=== PATIENT | male | born 1990 | race Two or more races ===

== ENCOUNTER 2017-07-14 15:43 | Emergency (ER) | payer OTHER ==
[2017-07-14] MEDS ORDERED: NORMAL SALINE 1000 ML 1,000 ML IV ONE (15:57)
--- NOTE | 2017-07-14 16:00 | ER Document Report ---
ED General - General Chief Complaint: Heat Exposure Stated Complaint: HEAT EXPOSURE Time Seen by Provider: 07/14/17 15:57 Mode of Arrival: Medic Information source: Patient Notes: 27-year-old male presents with complaints of body cramping in his hands locking up while he was outside working in 85 weather. Patient was given IV fluids by EMS and notes symptoms are already improving. Patient had similar issue in the past TRAVEL OUTSIDE OF THE [place] IN LAST 30 DAYS: No - HPI Onset: Just prior to arrival Onset/Duration: Sudden Quality of pain: Cramping Severity: Moderate Pain Level: 3 Associated symptoms: Body/muscle aches Exacerbated by: Other - Working outdoors Relieved by: Other - IV fluids Similar symptoms previously: Yes Recently seen / treated by doctor: No - Related Data Allergies/Adverse Reactions: peanut butter Allergy (Uncoded 07/14/17 15:45) Past Medical History - Social History Smoking Status: Never Smoker Cigarette use (# per day): No Chew tobacco use (# tins/day): No Smoking Education Provided: No Family History: Reviewed & Not Pertinent Review of Systems - Review of Systems Notes: REVIEW OF SYSTEMS: CONSTITUTIONAL : Denies fever, chills, or sweats. Denies recent illness. EENT: Denies eye, ear, throat, or mouth pain or symptoms. Denies nasal or sinus congestion or discharge. Denies throat, tongue, or mouth swelling or difficulty swallowing. CARDIOVASCULAR: Denies chest pain. Denies palpitations or racing or irregular heart beat. Denies ankle edema. RESPIRATORY: Denies cough, cold, or chest congestion. Denies shortness of breath, difficulty breathing, or wheezing. GASTROINTESTINAL: Denies abdominal pain or distention. Denies nausea, vomiting , or diarrhea. Denies blood in vomitus, stools, or per rectum. Denies black, tarry stools. Denies constipation. GENITOURINARY: Denies difficulty urinating, painful urination, burning, frequency, blood in urine, or discharge. MUSCULOSKELETAL: Admits to body aches hands cramping muscles cramping SKIN: Denies rash, lesions or sores. HEMATOLOGIC : Denies easy bruising or bleeding. LYMPHATIC: Denies swollen, enlarged glands. NEUROLOGICAL: Denies confusion or altered mental status. Denies passing out or loss of consciousness. Denies dizziness or lightheadedness. Denies headache. Denies weakness or paralysis or loss of use of either side. Denies problems with gait or speech. Denies sensory loss, numbness, or tingling. Denies seizures. PSYCHIATRIC: Denies anxiety or stress. Denies depression, suicidal ideation, or homicidal ideation. ALL OTHER SYSTEMS REVIEWED AND NEGATIVE. Dictation was performed using [employer] voice recognition software PHYSICAL EXAMINATION: GENERAL: Well-appearing, well-nourished and in no acute distress. HEAD: Atraumatic, normocephalic. EYES: Pupils equal round and reactive to light, extraocular movements intact, sclera anicteric, conjunctiva are normal. ENT: Nares patent, oropharynx clear without exudates. Moist mucous membranes. NECK: Normal range of motion, supple without lymphadenopathy LUNGS: Breath sounds clear to auscultation bilaterally and equal. No wheezes rales or rhonchi. HEART: Regular rate and rhythm without murmurs ABDOMEN: Soft, nontender, nondistended abdomen. No guarding, no rebound. No masses appreciated. Musculoskeletal: Normal range of motion, no pitting or edema. No cyanosis. NEUROLOGICAL: Cranial nerves grossly intact. Normal speech, normal gait. Normal sensory, motor exams PSYCH: Normal mood, normal affect. SKIN: Warm to touch dry Physical Exam - Vital signs Vitals: Temp Pulse Resp BP Pulse Ox 97.6 F 104 H 16 129/80 H 100 07/14/17 15:49 07/14/17 15:49 07/14/17 15:49 07/14/17 15:49 07/14/17 15:49 Course - Re-evaluation Re-evalutation: 07/14/17 16:12 Patient will be given IV fluids rhabdo workup pending 07/14/17 17:11 Patient's creatinine is noted to be 2.54 CK was 800s, 19 which would be consistent with distress 07/14/17 19:25 Patient's creatinine has improved to 1.79, he is insisting that we discharge at this time I will discharge him at his request, patient has been instructed not to work any further for the next couple days Patient encouraged to hydrate well - Vital Signs Vital signs: Temp Pulse Resp BP Pulse Ox 98.3 F 95 18 125/84 100 07/14/17 19:17 07/14/17 19:17 07/14/17 19:17 07/14/17 19:17 07/14/17 19:17 - Laboratory Result Diagrams: 07/14/17 18:29 07/14/17 18:10 Laboratory results interpreted by me: 07/14/17 07/14/17 07/14/17 16:11 16:11 16:15 WBC 19.2 H RBC 5.81 H RDW 15.4 H Seg Neutrophils % 85.7 H Lymphocytes % 7.7 L Absolute Neutrophils 16.4 H Chloride Carbon Dioxide Creatinine 2.54 H Est GFR ( Amer) 36 L Est GFR (Non-Af Amer) 30 L Glucose 63 L Calcium 10.5 H Creatine Kinase 843 H Total Protein 8.4 H Urine Blood MODERATE H 07/14/17 07/14/17 18:10 18:29 WBC 18.9 H RBC RDW 15.1 H Seg Neutrophils % 85.4 H Lymphocytes % 8.1 L Absolute Neutrophils 16.1 H Chloride 109 H Carbon Dioxide 21 L Creatinine 1.79 H Est GFR ( Amer) 55 L Est GFR (Non-Af Amer) 45 L Glucose 64 L Calcium Creatine Kinase 971 H Total Protein Urine Blood Discharge - Discharge Clinical Impression: Acute renal failure Qualifiers: Acute renal failure type: unspecified Qualified Code(s): N17.9 - Acute kidney failure, unspecified Heat stroke Qualifiers: Encounter type: initial encounter Qualified Code(s): T67.0XXA - Heatstroke and sunstroke, initial encounter Condition: Stable Disposition: HOME, SELF-CARE Additional Instructions: You must drink lots of fluids and stay out of work for the next 2-3 days Return immediately if there are any other concerns
[2017-07-14 16:39] LABS: ABSOLUTE LYMPHOCYTES (AUTO) 1.5 10^3/uL (0.5-4.7); ABSOLUTE MONOCYTES (AUTO) 1.2 10^3/uL (0.1-1.4); ABSOLUTE NEUT (AUTO) 16.4 10^3/uL (1.7-8.2); BASOPHILS % (AUTO) 0.1 % (0-2); EOSINOPHILS % (AUTO) 0.1 % (0-6); HEMATOCRIT 49.7 % (37.9-51.0); HEMOGLOBIN 16.9 g/dL (13.5-17.0); LYMPHOCYTES % (AUTO) 7.7 % (13-45); MEAN CORPUSCULAR HEMOGLOBIN 29.1 pg (27.0-33.4); MEAN CORPUSCULAR VOLUME 86 fl (80-97); MONOCYTES % (AUTO) 6.4 % (3-13); PLATELET COUNT 277 10^3/uL (150-450); RED BLOOD COUNT 5.81 10^6/uL (4.35-5.55); RED CELL DISTRIBUTION WIDTH 15.4 % (11.5-14.0); SEGMENTED NEUTROPHILS % (AUTO) 85.7 % (42-78); TOTAL CELLS COUNTED % (AUTO) 100 %; WHITE BLOOD COUNT 19.2 10^3/uL (4.0-10.5)
[2017-07-14 17:03] LABS: ALANINE AMINOTRANSFERASE 36 U/L (21-72); ALKALINE PHOSPHATASE 52 U/L (38-126); ANION GAP 18 (5-19); ASPARTATE AMINO TRANSFERASE 42 U/L (17-59); BILIRUBIN,DIRECT 0.4 mg/dL (0.0-0.4); BILIRUBIN,TOTAL 0.5 mg/dL (0.2-1.3); BLOOD UREA NITROGEN 17 mg/dL (7-20); CALCIUM 10.5 mg/dL (8.4-10.2); CARBON DIOXIDE 22 mmol/L (22-30); CHLORIDE 101 mmol/L (98-107); CREATINE KINASE 843 U/L (55-170); GLUCOSE 63 mg/dL (75-110); POTASSIUM 3.6 mmol/L (3.6-5.0); SODIUM 141.2 mmol/L (137-145); TOTAL PROTEIN 8.4 g/dL (6.3-8.2)
[2017-07-14] MEDS: NORMAL SALINE 1000 ML 1,000 ML IV PRN ×2 (17:14→17:15)
[2017-07-14 17:21] LABS: APPEARANCE,URINE SLIGHTLY-CLOUDY; BILIRUBIN,URINE NEGATIVE (NEGATIVE); COLOR,URINE STRAW; GLUCOSE, URINE NEGATIVE (NEGATIVE); KETONES,URINE NEGATIVE (NEGATIVE); LEUKOCYTE ESTERASE,URINE NEGATIVE (NEGATIVE); NITRITE,URINE NEGATIVE (NEGATIVE); PROTEIN,URINE NEGATIVE (NEGATIVE); URINE SPECIFIC GRAVITY 1.005; UROBILINOGEN,URINE NEGATIVE mg/dL (<2.0)
[2017-07-14 18:40] LABS: ABSOLUTE BASOPHILS # (AUTO) 0.1 10^3/uL (0.0-0.2); ABSOLUTE LYMPHOCYTES (AUTO) 1.5 10^3/uL (0.5-4.7); ABSOLUTE MONOCYTES (AUTO) 1.2 10^3/uL (0.1-1.4); ABSOLUTE NEUT (AUTO) 16.1 10^3/uL (1.7-8.2); BASOPHILS % (AUTO) 0.4 % (0-2); HEMATOCRIT 44.8 % (37.9-51.0); LYMPHOCYTES % (AUTO) 8.1 % (13-45); MEAN CORPUSCULAR HEMOGLOBIN 28.5 pg (27.0-33.4); MEAN CORPUSCULAR HGB CONC 33.1 g/dL (32.0-36.0); MEAN CORPUSCULAR VOLUME 86 fl (80-97); MONOCYTES % (AUTO) 6.1 % (3-13); PLATELET COUNT 248 10^3/uL (150-450); RED BLOOD COUNT 5.21 10^6/uL (4.35-5.55); RED CELL DISTRIBUTION WIDTH 15.1 % (11.5-14.0); SEGMENTED NEUTROPHILS % (AUTO) 85.4 % (42-78); TOTAL CELLS COUNTED % (AUTO) 100 %; WHITE BLOOD COUNT 18.9 10^3/uL (4.0-10.5)
[2017-07-14 18:48] LABS: HEMOGLOBIN 14.8 g/dL (13.5-17.0)
[2017-07-14 18:50] LABS: ALANINE AMINOTRANSFERASE 38 U/L (21-72); ALBUMIN 3.9 g/dL (3.5-5.0); ALKALINE PHOSPHATASE 49 U/L (38-126); ANION GAP 11 (5-19); ASPARTATE AMINO TRANSFERASE 38 U/L (17-59); BILIRUBIN,DIRECT 0.3 mg/dL (0.0-0.4); BILIRUBIN,TOTAL 0.4 mg/dL (0.2-1.3); BLOOD UREA NITROGEN 15 mg/dL (7-20); CALCIUM 8.6 mg/dL (8.4-10.2); CARBON DIOXIDE 21 mmol/L (22-30); CHLORIDE 109 mmol/L (98-107); CREATINE KINASE 971 U/L (55-170); GLUCOSE 64 mg/dL (75-110); POTASSIUM 4.1 mmol/L (3.6-5.0); SODIUM 140.8 mmol/L (137-145); TOTAL PROTEIN 6.8 g/dL (6.3-8.2)
[2017-07-14 19:20] VITALS: BP 125/84
== END 2017-07-14 19:15 | disposition home or self-care (01) ==
LOC: ER 15:43
DX: T67.0XXA Heatstroke and sunstroke, initial encounter (principal); N17.9 Acute kidney failure, unspecified; R25.2 Cramp and spasm; M79.1 Myalgia; X58.XXXA Exposure to other specified factors, initial encounter
CPT/HCPCS: 99284; 96360; 96361; 36415; 82550; 85025; 80053; 81001; J7030